=== PATIENT | female | born 2000 | race African-American/Black ===

== ENCOUNTER 2024-03-01 09:36 | Emergency (ER) | payer SELFPAY ==
--- NOTE | 2024-03-01 09:56 | ED.NECK ---
HPI - Neck Pain/Injury General Chief Complaint: Neck Pain/Injury Stated Complaint: Lt side Neck Pain Time Seen by Provider: 03/01/24 09:53 Source: patient Mode of arrival: ambulatory Limitations: no limitations History of Present Illness HPI Narrative: Tia is a 23-year-old female patient presenting to the clinic today with complaints left-sided neck pain and headache. She reports that she felt as though she slept on her neck wrong on Sunday night. States that it feels as there is a ?Isabella in her neck and it is causing a headache on the left side of for head. No history of migraine headaches. Denies any nausea or vomiting. Does have some slight blurry vision in the left eye. Blood pressure is elevated in the clinic today-no history of high blood pressure. Denies any chest pain, shortness of breath, or any neck injury/head injury. Has pain when turning her neck side to side. Denies any fever, chills, body aches, or any other meningeal signs Related Data Allergies Allergy/AdvReac Type Severity Reaction Status Date / Time cashew nut Allergy Other Verified 03/01/24 10:07 Review of Systems Review of Systems: Pertinent positives per HPI. Patient denies any fever, chills, rash, dizziness, cough, runny nose, sore throat, shortness of breath, chest pain, palpitations, nausea, vomiting, diarrhea, constipation, abdominal pain, or any urinary issues. PMFSH Comments At the time of my signature, I reviewed and agree with the nursing past medical, surgical, social, and family history. There is no relevant family history pertinent to the patient complaint. Exam Narrative: General: Well-developed, well nourished, in no apparent distress Head: Normocephalic, atraumatic. Cardio: Regular rate and rhythm, s1 and s2 normal, no murmur appreciated. Resp: Clear to auscultation bilaterally, no rhonchi, rales, wheezing or rubs. Musculoskeletal: No deformity,tender to palpation over the left lateral neck/cervical spine, no pain or tenderness over the shoulder or pain radiating down the arm, pain with flexion and extension of her neck, grossly normal range of motion, muscle strength strong and equal in BLE. patellar reflexes 2/4 bilaterally, negative foot drop, normal gait and station extremity exam Neuro: Alert and oriented x4 with normal speech, no focal deficits, cranial nerves I through XII intact, muscle strength 5 out of 5, sensation intact bilaterally. Course Course Emergency Course: Portions of this record may have been created with voice recognition software. Level of Care: Express Care Visit Vital Signs Vital signs: Vital signs reviewed MDM - Neck Pain/Injury MDM Narrative Medical decision making narrative: At the time of visit patient is resting comfortably on the exam table. Patient appears to be nontoxic. Plan: I suspect patient has a left cervical strain as well as an acute headache. No meningeal signs in the clinic today. Patient does have elevated blood pressure without diagnosis of hypertension and that was discussed in length in the clinic today. Recommend follow-up with her PCP next week and keeping a blood pressure diary. Prescription for cyclobenzaprine will be sent to the pharmacy today. Supportive measures were discussed with the patient and they voiced understanding discharge instructions and agrees to treatment plan. Return precautions reviewed Differential Diagnosis Differential diagnosis: Likely disc disorder of cervical region, whiplash injury to neck, cervical radiculopathy, torticollis, cervical spondylosis, strain of neck muscle and other (Meningitis, migraine headache, vascular headache-hypertension,) Discharge Plan Discharge Clinical Impression: Strain of neck muscle, Headache, Elevated blood pressure reading in office without diagnosis of hypertension Patient Disposition: Home, Self-Care Condition: Stable Instructions: Antibiotic Form, Cervical Strain (ED), Acute Headache (ED) Add
[2024-03-01 10:11] VITALS: BP 152/101; PULSE 93; RESP 16; TEMP 36.6; O2SAT 100
== END 2024-03-01 10:27 | disposition home or self-care (01) ==
PROVIDERS: Emergency Provider Nurse Practitioner Family
DX: S16.1XXA Strain of muscle, fascia and tendon at neck level, initial encounter (principal); X58.XXXA Exposure to other specified factors, initial encounter; R51.9 Headache, unspecified; R03.0 Elevated blood-pressure reading, without diagnosis of hypertension
CPT/HCPCS: 99203; G0463